=== PATIENT | female | born 1940 | race Caucasian/White ===

== ENCOUNTER 2018-11-11 04:05 | Inpatient (IN) | payer SELFPAY ==
[2018-11-11] VITALS (9 sets, daily range): BP systolic 103–152; BP diastolic 49–91
[~2018-11-11] VITALS: Ht 149.9 cm; Wt 48.5 kg
--- NOTE | 2018-11-11 04:05 | NUR ---
PT MIGUEL ALS. TAKEN TO BED 5
--- NOTE | 2018-11-11 04:10 | NUR ---
78 Y/O F BIBA S/P PT FOUND WITH ALOC AT HOME. PT LAST SEEN NORMAL AT HOME AT 2200 ON 11/10/18. BLOOD GLUCOSE CHECKED AT HOME, BS 34. GRECIA GAVE D10 IV ON SCENE. BS AFTER ADMINISTRATION 201. AAOX4. GCS 15. SPEECH CLEAR. PERRL PRESENT. +CMS. BILATERAL LUNGS CLEAR. RESPIRATIONS EVEN AND UNLABORED. O2 SATURATION AT 99% ON ROOM AIR. BED IN LOWEST POSTION. BEDRAILS X2 UP. ERMD NOTIFIED. WILL CONTINUE TO MONITOR. -BS AT BEDSIDE 148. -18 G IV TO R FOREARM INSERTED BY GRECIA IV PATENT.
[2018-11-11] MEDS ORDERED: NACL 0.9% 1,000 ML IV ONE (04:15)
[2018-11-11 04:31] LABS: APPEARANCE,URINE CLEAR (CLEAR); BILIRUBIN,URINE NEGATIVE (NEGATIVE); BLOOD, URINE TRACE-I (NEGATIVE); COLOR,URINE YELLOW (YELLOW); LEUKOCYTE ESTERASE ,URINE NEGATIVE (NEGATIVE); NITRITE, URINE NEGATIVE (NEGATIVE); PH,URINE 5.5 (5.0-9.0); UGLUCOSE NEGATIVE (NEGATIVE)
[2018-11-11 04:31] LABS: BASOPHILS % (AUTO) 0.1 % (0.0-2.0); HEMATOCRIT 22.9 % (36-48); HEMOGLOBIN 7.4 g/dL (12.0-16.0); LYMPHOCYTES # (AUTO) 0.4 K/uL (2.5-16.5); MEAN CORPUSCULAR HEMOGLOBIN 27 pg (27-31); MEAN CORPUSCULAR HGB CONC 32 g/dL (33-37); MONOCYTES # (AUTO) 0.3 K/uL (0.8-1.0); MONOCYTES % (AUTO) 3.1 % (1.7-9.3); NEUTROPHILS % (AUTO) 92.9 % (42.2-75.2); PLATELET COUNT (AUTO) 234 K/uL (140-450); RED BLOOD CELL COUNT(AUTO) 2.69 MIL/uL (4.20-5.40); RED CELL DISTRIBUTION WIDTH 17.6 % (11.6-13.7); WHITE BLOOD COUNT (AUTO) 9.7 K/uL (4.8-10.8)
[2018-11-11 04:47] LABS: LYMPHOCYTES % (AUTO) 3.9 % (20.5-51.1)
[2018-11-11 04:53] LABS: ASPARTATE AMINOTRANSFERASE 25 U/L (15-37); CARBON DIOXIDE 13.9 mmol/L (21-32); CHLORIDE 108 mmol/L (98-107); CREATININE 2.6 mg/dL (0.6-1.3); GLUCOSE 115 mg/dL (74-106); POTASSIUM 4.9 mmol/L (3.5-5.1); SODIUM SERUM 138 mmol/L (136-145); TOTAL BILIRUBIN 0.1 mg/dL (0.0-1.0)
[2018-11-11 04:57] LABS: RBC,URINE 0-5 /HPF (0-5); WBC,URINE 0-5 /HPF (0-5)
[2018-11-11 05:01] LABS: UREA NITROGEN, BLOOD 89 mg/dL (7-18)
--- NOTE | 2018-11-11 05:45 | NUR ---
PT AWAKE AND ALERT. FAMILY AT BEDSIDE. PER PT NIECE, PT IS VISITNG AND HAS BEEN TAKING SEVERAL MEDICATIONS IN WHICH PT LINETTE IS UNSURE WHAT THEY ARE. ACCORDING TO FAMILY EVER SINCE SHE HAS BEEN TAKING THE MEDICATION "SHE HAS BEEN ACTING WEIRD. I THINK SHE MIGHT HAVE BEEN MIXING HER MEDICATIONS." VSS AT THIS TIME. WILL CONTINUE TO MONITOR.
[2018-11-11] MEDS ORDERED: HYDROcodone/APAP 5/325 MG 1 TAB TAB PO PRN (05:55)
[2018-11-11] MEDS ORDERED: ACETAMINOPHEN 325 MG TAB PO PRN (05:55)
[2018-11-11] MEDS ORDERED: MORPHINE SULFATE 2 MG/ML SYR IVP PRN (05:55)
[2018-11-11] MEDS ORDERED: DEXT 5% / NACL 0.9% 500 ML IV ONE (05:55)
[2018-11-11] MEDS ORDERED: ONDANSETRON 4 MG/2 ML VIAL IM/IVP PRN (05:55)
[2018-11-11] MEDS ORDERED: DOCUSATE SODIUM 100 MG GELCAP PO PRN (05:55)
[2018-11-11] MEDS ORDERED: ENAL-197 PO ×2 (05:59→07:01)
[2018-11-11 06:11] LABS: PROTHROMBIN TIME 9.6 secs (10.8-13.4)
[2018-11-11] MEDS ORDERED: FURO-570 PO (06:18)
[2018-11-11 06:21] LABS: CHOL/HDL RATIO 3.2 (1-4.5); PHOSPHORUS 4.2 mg/dL (2.5-4.9); THYROID STIMULATING HORMONE 0.91 uIU/mL (0.34-3.74)
--- NOTE | 2018-11-11 06:22 | NUR ---
Dr. Romero examining patient.
[2018-11-11] MEDS ORDERED: methylPREDNISolone SS 125 MG/2 ML VIAL IVP ONE (06:25)
[2018-11-11] MEDS ORDERED: EPINEPHrine PFS 0.1 MG/ML SYR IVP ONE (06:25)
[2018-11-11] MEDS ORDERED: diphenhydrAMINE 50 MG/ML VIAL IVP ONE (06:25)
--- NOTE | 2018-11-11 06:25 | NUR ---
PT TONGUE REDDENED AND EDEMATOUS. 6L VIA NON-REBREATHER IN PLACE. O2 SATURATION 100%.
[2018-11-11] MEDS ORDERED: NACL 0.9% 1,000 ML IV SCH (06:30)
[2018-11-11] MEDS ORDERED: ALBUTEROL SULFATE/IPRATROPIU 3 ML SOL IH PRN (06:30)
--- NOTE | 2018-11-11 06:32 | NUR ---
BS 11 BUT PT AWAKE AND ALERT. D50 ORDERED AND GIVEN.
[2018-11-11] MEDS: BLOOD GLUCOSE MONITORING 1 DEV DEV FS SCH ×17 (06:35→23:05)
[2018-11-11] MEDS ORDERED: POTASSIUM CHL 20 MEQ/D5-1/2NS 1,000 ML IV SCH (06:35)
--- NOTE | 2018-11-11 06:35 | NUR ---
ACCU CHECK 237 AT THIS TIME, ERMD AWARE.
--- NOTE | 2018-11-11 06:36 | NUR ---
D5/NS 0.45% IV BOLUS VERBAL ORDER GIVEN AND STARTED.
[2018-11-11] MEDS ORDERED: EPINEPHrine 1:1000 - 1 MG/ML AMP ONE (06:39)
[2018-11-11] MEDS ORDERED: diphenhydrAMINE 50 MG/ML VIAL ONE (06:41)
[2018-11-11] MEDS ORDERED: methylPREDNISolone SS 125 MG/2 ML VIAL ONE (06:41)
[2018-11-11] MEDS ORDERED: DEXTROSE 50% 50 ML SYR IVP ONE (06:42)
[2018-11-11] MEDS: ALBUTEROL SULFATE/IPRATROPIU 3 ML SOL IH SCH ×3 (07:00→19:13)
[2018-11-11] MEDS ORDERED: DEXTROSE 50% 50 ML SYR IVP PRN (07:05)
--- NOTE | 2018-11-11 07:28 | NUR ---
Patient will be admitted to care of Dr. Hale. Admited to ICU. Will go to room 2. Belongings list completed. VSS at time of transport. Report to HÉCTOR Lehman. Transfer of care at this time.
--- NOTE | 2018-11-11 07:30 | NUR ---
RECEIVED BEDSIDE REPORT FROM TRANSFORMER COIL WINDER, LAVERN. PT IS AAOX4, ABLE TO FOLLOW COMMANDS, FRENCH SPEAKER. CC: ALOC. PT HAD LOW BLOOD SUGAR IN THE 34 WHEN EMT ARRIVED. ALSO, HAD HYPOGLYCEMIC EPISODE IN ER. D50 WAS GIVEN. BG 223 AT THIS TIME. PERRLA. HOWEVER, PT CLAIMS RIGHT EYE BLINDNESS. USES GLASSES AND CANE AT HOME. NO DENTURES. VITALS STABLE, ON ROOM AIR. SR ON PSYCHOLOGIST EDUCATIONAL. BILATERAL LUNG SOUNDS CLEAR. BOWEL SOUNDS ACTIVE X4, NPO EX MEDS FOR NOW. DENIES PAIN AND NAUSEA AT THIS TIME. PT IS CONTINENT. RIGHT AC 18G AND LEFT AC 20G, ASYMPTOMATIC, PATENT AND INTACT. SKIN INTACT, HOWEVER, BRUISE ON LEFT CHEST. DENIES PAIN. PT SAID SHE BRUISE EASILY. SAFETY PRECAUTIONS IN PLACE, CALL LIGHT WITHIN REACH, WILL CONTINUE TO MONITOR.
[2018-11-11] MEDS ORDERED: HYDROmorphone 1 MG/ML AMP IVP SCH (07:40)
--- NOTE | 2018-11-11 07:50 | NUR ---
DR COE HAS SEEN THE PT.
--- NOTE | 2018-11-11 08:10 | NUR ---
PATIENT HAS BEEN SCREENED AND CATEGORIZED MODERATE NUTRITION RISK. PATIENT WILL BE SEEN WITHIN 3-5 DAYS OF ADMISSION. 11/13/18BERNAR[address]
[2018-11-11] MEDS ORDERED: SODIUM BICARBONATE 8.4% 50 MEQ/50 ML VIAL INJ ONE (08:35)
[2018-11-11] MEDS ORDERED: SODIUM BICARBONATE 8.4% PFS 50 MEQ/50 ML SYR IVP SCH ×2 (09:00→14:35)
[2018-11-11] MEDS ORDERED: LOSARTAN 25 MG TAB PO SCH (09:27)
[2018-11-11] MEDS ORDERED: FUROSEMIDE 40 MG TAB PO SCH (09:27)
[2018-11-11 09:44] LABS: CHOL/HDL RATIO 3.1 (1-4.5); THYROID STIMULATING HORMONE 0.72 uIU/mL (0.34-3.74)
--- NOTE | 2018-11-11 09:57 | NUR ---
PT BG 47, RECHECKED ON THE OTHER HAND 46. ADMINISTERED D50. REPORTED TO DR COE. DR COE ORDERED D5 1/2NS AT 80ML/HR FOR BS <100. Addendum: 11/11/18 at 1515 by Dominik Salvador RN ASKED IF DR COE WANTS HOLD THE NS WHILE D5 1/2NS IS INFUSING, DR COE SAID YES.
--- NOTE | 2018-11-11 10:05 | NUR ---
STARTED PT ON D5 1/2NS AT 80ML/HR ON RIGHT AC, AND DC'D NS.
[2018-11-11] MEDS: DEXT 5% / NACL 0.45% 1,000 ML IV SCH (10:21)
[2018-11-11] MEDS ORDERED: methylPREDNISolone SS 40 MG/ML VIAL IVP SCH (10:23)
[2018-11-11] MEDS ORDERED: LORATADINE 10 MG TAB PO SCH (10:24)
[2018-11-11 12:02] LABS: BASOPHILS % (AUTO) 0.1 % (0.0-2.0); HEMATOCRIT 24.4 % (36-48); HEMOGLOBIN 7.8 g/dL (12.0-16.0); LYMPHOCYTES # (AUTO) 0.4 K/uL (2.5-16.5); MEAN CORPUSCULAR HEMOGLOBIN 27 pg (27-31); MEAN CORPUSCULAR HGB CONC 32 g/dL (33-37); MEAN CORPUSCULAR VOLUME 84.7 fL (80-94); MONOCYTES # (AUTO) 0.1 K/uL (0.8-1.0); MONOCYTES % (AUTO) 1.1 % (1.7-9.3); NEUTROPHILS # (AUTO) 12.1 K/uL (1.8-7.7); NEUTROPHILS % (AUTO) 95.8 % (42.2-75.2); PLATELET COUNT (AUTO) 228 K/uL (140-450); RED BLOOD CELL COUNT(AUTO) 2.88 MIL/uL (4.20-5.40); RED CELL DISTRIBUTION WIDTH 17.7 % (11.6-13.7); WHITE BLOOD COUNT (AUTO) 12.6 K/uL (4.8-10.8)
[2018-11-11 12:44] LABS: ALBUMIN 2.9 g/dL (3.4-5.0); ANION GAP 17.7 (8-16); ASPARTATE AMINOTRANSFERASE 37 U/L (15-37); CARBON DIOXIDE 16.8 mmol/L (21-32); CHLORIDE 108 mmol/L (98-107); CREATININE 2.3 mg/dL (0.6-1.3); GLUCOSE 110 mg/dL (74-106); POTASSIUM 4.5 mmol/L (3.5-5.1); SODIUM SERUM 138 mmol/L (136-145); TOTAL BILIRUBIN 0.2 mg/dL (0.0-1.0)
[2018-11-11 12:45] LABS: UREA NITROGEN, BLOOD 77 mg/dL (7-18)
--- NOTE | 2018-11-11 14:50 | NUR ---
PT C/O PAIN ON THE LEFT REAR SHOULDER. PT SAID IT'S CHRONIC SHE HAD BEFORE. PT IS WATCHING TV, NO FACIAL GRIMACING AND NO GUARDING. MADE DR COE AWARE. DR COE SAID TO GIVE TYLENOL.
--- NOTE | 2018-11-11 15:05 | NUR ---
FAMILY MARIA ESTHER HERNANDEZ (NIECE) AND HER DAUGHTER IS HERE TO VISIT PT.
--- NOTE | 2018-11-11 18:00 | NUR ---
PT FINISHED DINNER, SITTING UP IN BED, TALKING TO FAMILY. NIECE MARIA ESTHER AT BEDSIDE.
--- NOTE | 2018-11-11 18:04 | NUR ---
BG 222, CALLED DR COE, ORDER TO LOWER D5 1/2NS TO 20ML/HR. ORDER CARRIED OUT
--- NOTE | 2018-11-11 19:20 | NUR ---
REPORT GIVEN TO CORPORATE COMMUNICATIONS ASSOCIATE RNSALMA AND LIYAH.
--- NOTE | 2018-11-11 19:20 | NUR ---
RECEIVED BEDSIDE REPORT FROM DAY SHIFT RN JENNIE, PATIENT IN BED, MEXICAN SPEAKING, ABLE TO MAKE NEEDS KNOWN AND FOLLOW DIRECTIONS. R/T AT BEDSIDE. FAMILY AT BEDSIDE QUESTIONS ANSWERED. V/S STABLE, IV IN RIGHT AC 20 G NOT PATENT. IV IN LEFT AC 18 G PATIENT INFUSING D5/1/2 NS AR 20 ML/HR. CALL LIGHT WITHIN REACH.
--- NOTE | 2018-11-11 20:00 | NUR ---
BLOOD GLUCOSE 220 WILL CONTINUE TO MONITOR
--- NOTE | 2018-11-11 21:00 | NUR ---
BG 207 WILL CONTINUE TO MONITOR
--- NOTE | 2018-11-11 21:33 | NUR ---
PT WAS C/O SOMETHING BUT ONLY SPEAKS ITALIAN. CALLED CHAIR CAR DRIVER AND THE CHAIR CAR DRIVER #[id number]. PT WAS ONLY WANTING THE SCD TO BE FIXED.
--- NOTE | 2018-11-11 21:59 | NUR ---
BG 180 WILL CONTINUE TO MONITOR
--- NOTE | 2018-11-11 22:06 | NUR ---
DC IV IN LEFT AC 20 G CATH INTACT
[2018-11-11 22:23] LABS: BARBITURATE, URINE NEG. ng/ml (NEG <=200); BENZODIAZEPINE, URINE NEG. ng/mL (NEG <=200); CANNABINOID, URINE NEG. ng/mL (NEG <=50); COCAINE, URINE NEG. ng/mL (NEG <=300); OPIATE, URINE NEG. ng/mL (NEG <=2000); PHENCYCLIDINE SCREEN,URINE NEG. ng/mL (NEG <=25)
[2018-11-12] VITALS (10 sets, daily range): BP systolic 100–149; BP diastolic 42–69
--- NOTE | 2018-11-12 | NUR ---
BG 130. PATIENT URINATED 400 CC CLEAR YELLOW URINE. MARY KAY CARE PROVIDED, REPOSITIONED FOR COMFORT. EXPLAINED TO PATIENT OF NEED FOR STOOL SAMPLE FOR OCCULT BLOOD. PATIENT VERBALIZED UNDERSTANDING.
--- NOTE | 2018-11-12 01:00 | NUR ---
BLOOD GLUCOSE 120
[2018-11-12] MEDS: BLOOD GLUCOSE MONITORING 1 DEV DEV FS SCH ×17 (01:02→23:19)
--- NOTE | 2018-11-12 02:00 | NUR ---
BLOOD GLUCOSE 114. REPOSITIONED PATIENT FOR COMFORT.
--- NOTE | 2018-11-12 03:00 | NUR ---
BLOOD GLUCOSE 102 OFFERED ORANGE JUICE
--- NOTE | 2018-11-12 04:00 | NUR ---
BLOOD GLUCOSE 155
--- NOTE | 2018-11-12 05:00 | NUR ---
BLOOD GLUCOSE 104. WILL OFFER ORANGE JUICE
[2018-11-12 06:12] LABS: T4 (THYROXINE) 7.6 ug/dL (4.5-12.0)
[2018-11-12 06:14] LABS: BASOPHILS % (AUTO) 0.1 % (0.0-2.0); LYMPHOCYTES # (AUTO) 0.9 K/uL (2.5-16.5); LYMPHOCYTES % (AUTO) 11.4 % (20.5-51.1); MEAN CORPUSCULAR HEMOGLOBIN 28 pg (27-31); MEAN CORPUSCULAR HGB CONC 33 g/dL (33-37); MEAN CORPUSCULAR VOLUME 83.3 fL (80-94); MONOCYTES # (AUTO) 0.5 K/uL (0.8-1.0); MONOCYTES % (AUTO) 6.8 % (1.7-9.3); NEUTROPHILS # (AUTO) 6.5 K/uL (1.8-7.7); NEUTROPHILS % (AUTO) 81.7 % (42.2-75.2); PLATELET COUNT (AUTO) 200 K/uL (140-450); RED BLOOD CELL COUNT(AUTO) 2.25 MIL/uL (4.20-5.40); RED CELL DISTRIBUTION WIDTH 17.7 % (11.6-13.7); WHITE BLOOD COUNT (AUTO) 7.9 K/uL (4.8-10.8)
[2018-11-12 06:25] LABS: ANION GAP 17.9 (8-16); CARBON DIOXIDE 18.5 mmol/L (21-32); CHLORIDE 109 mmol/L (98-107); CREATININE 2.5 mg/dL (0.6-1.3); GLUCOSE 124 mg/dL (74-106); POTASSIUM 4.4 mmol/L (3.5-5.1); SODIUM SERUM 141 mmol/L (136-145)
[2018-11-12 06:28] LABS: UREA NITROGEN, BLOOD 74 mg/dL (7-18)
[2018-11-12 06:31] LABS: MAGNESIUM 1.7 mg/dL (1.8-2.4); PHOSPHORUS 4.3 mg/dL (2.5-4.9)
[2018-11-12 06:58] LABS: HEMATOCRIT 18.7 % (36-48)
[2018-11-12 06:59] LABS: HEMOGLOBIN 6.2 g/dL (12.0-16.0)
--- NOTE | 2018-11-12 07:00 | NUR ---
BG 94. ENDORSED PATIENT TO DAY SHIFT NURSE SEA, PATIENT SLEEPING IN BED.
[2018-11-12] MEDS: ALBUTEROL SULFATE/IPRATROPIU 3 ML SOL IH SCH ×2 (07:15→13:00)
--- NOTE | 2018-11-12 07:30 | NUR ---
RECEIVED BEDSIDE REPORT FROM PM NURSE, PATIENT IN BED, TURKISH SPEAKING, ABLE TO MAKE NEEDS KNOWN AND FOLLOW COMMANDS. BEDSIDE MONITOR SHOWS SR. RA, NO SOB. IV TO RIGHT AC # 20 RUNNING D5 1/2 NS AT 20 ML/HR. SITE INTACT AND PATENT. PT IS GNOSTICIST . INTRODUCED MYSELF, ALL SAFETY PRECAUTION MEASURE IN PLACE. WILL CONTINUE TO MONITOR PT.
[2018-11-12] MEDS: MAG SULF 2000 MG/WATER PREMIX 50 ML IV SCH (07:35)
[2018-11-12] MEDS ORDERED: PROBIOTIC SCREEN 1 EA MISC MC PRN (07:55)
--- NOTE | 2018-11-12 08:30 | NUR ---
dr. reis with his group making rounds. pt refused blood transfusion due to she is Bahai
[2018-11-12] MEDS ORDERED: FUROSEMIDE 40 MG TAB PO SCH (09:00)
[2018-11-12] MEDS ORDERED: LOSARTAN 25 MG TAB PO SCH (09:00)
[2018-11-12] MEDS ORDERED: LORATADINE 10 MG TAB PO SCH (09:00)
--- NOTE | 2018-11-12 09:00 | NUR ---
BS 183. CALLED RESIDENT [id number]. PER ORDER, JUST KEEP WATCHING.
[2018-11-12] MEDS: DEXT 5% / NACL 0.45% 1,000 ML IV SCH (09:43)
--- NOTE | 2018-11-12 10:20 | NUR ---
PHYSICAL THERAPY AT BEDSIDE.
--- NOTE | 2018-11-12 12:05 | NUR ---
PT SITTING AT BEDSIDE TO EAT LUNCH.
[2018-11-12 12:20] LABS: BASOPHILS % (AUTO) 0.2 % (0.0-2.0); EOSINOPHILS % (AUTO) 0.3 % (0.0-4.0); HEMATOCRIT 20.1 % (36-48); LYMPHOCYTES # (AUTO) 1.6 K/uL (2.5-16.5); MEAN CORPUSCULAR HEMOGLOBIN 27 pg (27-31); MEAN CORPUSCULAR HGB CONC 33 g/dL (33-37); MEAN CORPUSCULAR VOLUME 82.7 fL (80-94); MONOCYTES # (AUTO) 0.7 K/uL (0.8-1.0); MONOCYTES % (AUTO) 7.1 % (1.7-9.3); NEUTROPHILS % (AUTO) 75.4 % (42.2-75.2); PLATELET COUNT (AUTO) 219 K/uL (140-450); RED BLOOD CELL COUNT(AUTO) 2.43 MIL/uL (4.20-5.40); RED CELL DISTRIBUTION WIDTH 18.3 % (11.6-13.7); WHITE BLOOD COUNT (AUTO) 9.3 K/uL (4.8-10.8)
--- NOTE | 2018-11-12 12:30 | NUR ---
DR. HUDDLESTON CALLED REGARDING CONSULTED , WILL COME TO SEE THE PATIENT.
[2018-11-12 12:34] LABS: HEMOGLOBIN 6.7 g/dL (12.0-16.0)
--- NOTE | 2018-11-12 12:50 | NUR ---
LAB CALLED BLOOD CULTURE FOUND GRAM NEGATIVE KADI. DR. COE NOTIFIED.
[2018-11-12] MEDS: methylPREDNISolone SS 40 MG/ML VIAL IVP SCH ×2 (13:19→21:13)
--- NOTE | 2018-11-12 14:00 | NUR ---
SPOKE WITH DR. COE TO DISCONTINUE DUONEB TX Q6 WA AND CHANGE IT TO DUONEB Q6 PRN[address] COE HAS AGREED. PT IS DOING WELL WITHOUT TX. CHECKED PATIENT AT THIS TIME. PT'S SATS ARE 98% ON RA. HR 79. RR 18. NO RESP DISTRESS AT THIS TIME.
[2018-11-12 15:17] LABS: FOLIC ACID 18.3 ng/mL (>3.0)
--- NOTE | 2018-11-12 15:57 | NUR ---
PT TALKING WITH HER FAMILY AT BEDSIDE, NO ANY DISCOMFORT OR SOB NOTED.
[2018-11-12] MEDS ORDERED: SENNA 8.6 MG TAB PO SCH (17:00)
--- NOTE | 2018-11-12 17:44 | NUR ---
RECEIVED PT FROM DR. COE. DR. COE MADE AWARE PT BLOOD CULTURE POSITIVE. PER DR. COE, D/C ZOSYN ABX, WILL CARRY OUT.
--- NOTE | 2018-11-12 18:45 | NUR ---
REPORT GIVEN TO TELE NURSE DHIRAJ, PT VITALS STABLE AT THIS MOMENT. FAMILY WITH PT.
--- NOTE | 2018-11-12 18:46 | NUR ---
RECEIVED BED SIDE REPORT FROM RN BIRTHINGHÉCTOR OSEI. PT CAME VIA WHEELCHAIR WITH AUNT. RIGHT AC 22G RUNNING D5 1/2 NS. SKIN INTACT, BRUISES ON BILAT UPPER ARMS. ON CONTACT PRECAUTIONS FOR POSITIVE GRAM COCCI CLUSTERS. EDUCATED PT AND AUNT ABOUT PPE. BOTH VERBALIZED UNDERSTANDING. PT COMPLAINS OF NO PAIN. VS STABLE. BP 61/71 Addendum: 11/12/18 at 1917 by Jovany Frias RN BP 161/71, NO BP MEDS ORDERED, TRIED TO CALL RESIDENTS FOR ADDING BP MED. NO ANSWER. ENDORSED TO SCAFFOLD WORKER HÉCTOR AUGUST
--- NOTE | 2018-11-12 19:17 | NUR ---
GAVE BED SIDE REPORT FROM REPLENISHMENT MERCHANDISING ASSOCIATE RN AUGUST. PT IN STABLE CONDITION
--- NOTE | 2018-11-12 19:18 | NUR ---
RECEIVED REPORT FROM AM NURSE. PT IN BED, AWAKE, ALERT AND ORIENTED. PT ABLE TO VERBALIZE NEEDS. FAMILY AT BEDSIDE. PT BREATHING UNLABORED ON ROOM AIR. NO C/O DISCOMFORT. RIGHT AC 22G INTACT AND INFUSING WELL. SAFETY MEASURES IN PLACE, BED IN LOW POSITION, BED ALARM ON. CALL LIGHT WITHIN REACH.
[2018-11-12] MEDS ORDERED: PIPERACILLIN/TAZOBACTAM 3.375 GM in DEXTROSE 5% 100 ML IV SCH (21:00)
[2018-11-12] MEDS ORDERED: LACTULOSE 20 GM/30 ML UDC PO SCH (21:00)
--- NOTE | 2018-11-12 21:00 | NUR ---
BLOOD GLUCOSE TAKEN. 108 AT THIS TIME. FOLLOWED UP WITH RESIDENT SHINE TO CONTINUE GLUCOSE CHECKS Q2H. PER DR SHINE CONTINUE BLOOD GLUCOSE MONITORING Q2H.
--- NOTE | 2018-11-12 23:10 | NUR ---
BLOOD GLUCOSE 124 AT THIS TIME.
[2018-11-13] VITALS (7 sets, daily range): BP systolic 127–152; BP diastolic 49–86
--- NOTE | 2018-11-13 01:00 | NUR ---
SKILLED NURSING FACILITIES PROFESSIONAL ASSISTED PT TO BATHROOM. PT UNABLE TO HOLD BM, ACCIDENTAL STOOL ON FLOOR, CLOTHING AND BODY. PT WAS CLEANED AND CHANGED. PT PROVIDED NEW [place]. HOUSEKEEPING CALLED FOR CLEAN UP. OB STOOL SAMPLE OBTAINED.
--- NOTE | 2018-11-13 01:34 | NUR ---
BLOOD GLUCOSE 152. NOTIFIED RESIDENT . PER DR. SHINE NO INSULIN COVERAGE NEEDED AT THIS TIME. CONTINUE Q2H ACCU-CHECKS
[2018-11-13] MEDS: BLOOD GLUCOSE MONITORING 1 DEV DEV FS SCH ×8 (01:37→20:28)
--- NOTE | 2018-11-13 03:00 | NUR ---
BLOOD GLUCOSE 142
--- NOTE | 2018-11-13 05:00 | NUR ---
BLOOD GLUCOSE 136. MEDICATIONS GIVEN PT TOLERATED WELL.
[2018-11-13] MEDS: methylPREDNISolone SS 40 MG/ML VIAL IVP SCH ×3 (05:09→20:29)
[2018-11-13 05:54] LABS: ANION GAP 15.6 (8-16); CARBON DIOXIDE 19.7 mmol/L (21-32); CHLORIDE 111 mmol/L (98-107); CREATININE 2.3 mg/dL (0.6-1.3); GLUCOSE 151 mg/dL (74-106); POTASSIUM 5.3 mmol/L (3.5-5.1); SODIUM SERUM 141 mmol/L (136-145)
[2018-11-13 05:56] LABS: MAGNESIUM 2.6 mg/dL (1.8-2.4); PHOSPHORUS 3.6 mg/dL (2.5-4.9)
--- NOTE | 2018-11-13 05:59 | NUR ---
LAB CALLED TO REPORT BUN 64, TRENDING DOWN.
[2018-11-13 06:00] LABS: UREA NITROGEN, BLOOD 64 mg/dL (7-18)
--- NOTE | 2018-11-13 06:08 | NUR ---
NOTIFIED RESIDENT RL OF PT BUN OF 64, POTASSIUM 5.[address] SHINE HOLD 0700 MAG RIDER.
[2018-11-13] MEDS: MAG SULF 2000 MG/WATER PREMIX 50 ML IV SCH (06:12)
[2018-11-13 06:24] LABS: BASOPHILS % (AUTO) 0.1 % (0.0-2.0); LYMPHOCYTES # (AUTO) 0.6 K/uL (2.5-16.5); LYMPHOCYTES % (AUTO) 7.9 % (20.5-51.1); MEAN CORPUSCULAR HEMOGLOBIN 27 pg (27-31); MEAN CORPUSCULAR HGB CONC 33 g/dL (33-37); MEAN CORPUSCULAR VOLUME 83.2 fL (80-94); MONOCYTES # (AUTO) 0.1 K/uL (0.8-1.0); NEUTROPHILS # (AUTO) 6.4 K/uL (1.8-7.7); PLATELET COUNT (AUTO) 199 K/uL (140-450); RED BLOOD CELL COUNT(AUTO) 2.38 MIL/uL (4.20-5.40); RED CELL DISTRIBUTION WIDTH 17.8 % (11.6-13.7)
[2018-11-13] MEDS ORDERED: SODIUM POLYSTYRENE 15 GM/60 ML UDBTL PO SCH (07:00)
[2018-11-13] MEDS ORDERED: SODIUM POLYSTYRENE 15 GM/60 ML UDBTL PR SCH (07:00)
--- NOTE | 2018-11-13 07:05 | NUR ---
ENDORSED PT TO AM NURSE. PT IN STABLE CONDITION
[2018-11-13 07:11] LABS: HEMATOCRIT 19.8 % (36-48); HEMOGLOBIN 6.5 g/dL (12.0-16.0)
--- NOTE | 2018-11-13 07:30 | NUR ---
PATIENT WAS AWAKE, ALERT. RESPIRATION EVEN, UNLABOR ON ROOM AIR. SKIN DRY AND WARM. IV PATENT AND INTACT. DENIED PAIN, DIZZINESS, SOB AT THIS TIME. PLAN OF CARE WAS DISCUSSED WITH PATIENT. BED AT LOW POSITION, SIDE RAILS UP. CALL LIGHT WITHIN REACH.
[2018-11-13] MEDS ORDERED: BLOOD GLUCOSE MONITORING 1 DEV DEV FS SCH (08:00)
[2018-11-13] MEDS ORDERED: LACTOBACILLUS RHAMNOSUS GG 1 EACH CAP PO SCH (09:00)
--- NOTE | 2018-11-13 10:03 | NUR ---
PATIENT WAS RESTING COMFORTABLY IN BED. NO DISTRESS NOTED AT THIS TIME
--- NOTE | 2018-11-13 11:52 | NUR ---
PATIENT WAS RESTING COMFORTABLY. RESPIRATION EVEN, UNLABOR ON ROOM AIR. DENIED PAIN, DIZZINESS AT THIS TIME. NO DISTRESS NOTED.
--- NOTE | 2018-11-13 14:00 | NUR ---
PATIENT WAS SLEEPING COMFORTABLY. RESPIRATION EVEN, UNLABOR ON ROOM AIR. NO DISTRESS NOTED AT THIS TIME
--- NOTE | 2018-11-13 15:20 | NUR ---
11/13/18 RD FOLLOW UP COMPLETED PLEASE REFER TO NUTRITION ASSESSMENT UNDER CARE ACTIVITY FOR ESTIMATED NUTRITIONAL NEEDS. 1. CONTINUE SOFT DIET TOLERATED 2. RECOMMEND OFFERING GLUCERNA BID 3. RECOMMEND OFFERING CARDIAC,CCHO 45 GM, WHEN PT�S INTAKE IS ABOVE 75% 4. RD TO FOLLOW-UP 2-3 DAYS, HIGH RISK BERNARDA HADLEY, RD
--- NOTE | 2018-11-13 16:00 | NUR ---
PATIENT WAS SLEEPING COMFORTABLY. RESPIRATION EVEN, UNLABOR ON ROOM AIR. DENIED PAIN AT THIS TIME. FAMILY AT BEDSIDE. NO DISTRESS NOTED
--- NOTE | 2018-11-13 18:00 | NUR ---
PATIENT WAS RESTING COMFORTABLY. IV PATENT AND INTACT. NO DISTRESS NOTED AT THIS TIME. FAMILY AT BEDSIDE
--- NOTE | 2018-11-13 19:24 | NUR ---
ENDORSEMENT GIVEN TO IMMIGRATION OFFICER NURSE. PATIENT IS STABLE AT THIS TIME
--- NOTE | 2018-11-13 19:25 | NUR ---
RECEIVED PT IN STABLE CONDITION FROM AM NURSE FOR CONTINUITY OF CARE. AWAKE,ALERT AND ORIENTED X4. ON TEL MONITOR -SR. FAMILY AT BEDSIDE. NO C/O ANY DISCOMFORT NOR PAIN NOTED. HS HL ON THE RT AC G#20. CLEAR AND PATENT. PLAN OF CARE DISCUSSED AND VERBALIZED UNDERSTANDING. BED ON LOW POSITION, CALL LIGHT WITHIN REACH. WILL CONTINUE TO MONITOR.
--- NOTE | 2018-11-13 20:28 | NUR ---
BLOOD SUGAR WAS CHECKED RESULT 139. NO INSULIN NEEDED.
--- NOTE | 2018-11-13 23:00 | NUR ---
MADE ROUNDS. PT SLEEPING. NO S/S OF ANY DISTRESS NOR PAIN NOTED.
--- NOTE | 2018-11-14 02:00 | NUR ---
PT IS ASLEEP. NO S/S OF ANY DISCOMFORT NOTED. WILL CONTINUE TO MONITOR.
[2018-11-14 04:17] VITALS: BP 153/57
[2018-11-14] MEDS: methylPREDNISolone SS 40 MG/ML VIAL IVP SCH (04:21)
[2018-11-14] MEDS: BLOOD GLUCOSE MONITORING 1 DEV DEV FS SCH ×3 (04:25→08:44)
--- NOTE | 2018-11-14 04:25 | NUR ---
BLOOD SUGAR WAS CHECKED RESULT 119. NO INSULIN NEEDED.
[2018-11-14 06:08] LABS: ANION GAP 13.7 (8-16); CARBON DIOXIDE 22.2 mmol/L (21-32); CHLORIDE 113 mmol/L (98-107); CREATININE 2.2 mg/dL (0.6-1.3); GLUCOSE 123 mg/dL (74-106); POTASSIUM 4.9 mmol/L (3.5-5.1); SODIUM SERUM 144 mmol/L (136-145); UREA NITROGEN, BLOOD 54 mg/dL (7-18)
[2018-11-14 06:17] LABS: MAGNESIUM 2.5 mg/dL (1.8-2.4); PHOSPHORUS 3.6 mg/dL (2.5-4.9)
[2018-11-14 06:50] LABS: LYMPHOCYTES # (AUTO) 0.9 K/uL (2.5-16.5); LYMPHOCYTES % (AUTO) 10.7 % (20.5-51.1); MEAN CORPUSCULAR HEMOGLOBIN 27 pg (27-31); MEAN CORPUSCULAR HGB CONC 32 g/dL (33-37); MEAN CORPUSCULAR VOLUME 84.4 fL (80-94); MONOCYTES # (AUTO) 0.3 K/uL (0.8-1.0); MONOCYTES % (AUTO) 3.6 % (1.7-9.3); NEUTROPHILS # (AUTO) 7.6 K/uL (1.8-7.7); NEUTROPHILS % (AUTO) 85.7 % (42.2-75.2); PLATELET COUNT (AUTO) 203 K/uL (140-450); RED BLOOD CELL COUNT(AUTO) 2.31 MIL/uL (4.20-5.40); RED CELL DISTRIBUTION WIDTH 18.3 % (11.6-13.7); WHITE BLOOD COUNT (AUTO) 8.8 K/uL (4.8-10.8)
[2018-11-14 07:10] LABS: HEMOGLOBIN 6.3 g/dL (12.0-16.0)
[2018-11-14 07:13] LABS: HEMATOCRIT 19.5 % (36-48)
--- NOTE | 2018-11-14 07:14 | NUR ---
RECEIVED BEDSIDE REPORT FROM HÉCTOR WEEKS. PT STABLE, SLEEPING, BUT EASILY AROUSABLE. NO SIGNS OF DISTRESS NOTED. DENIES PAIN OR SOB. NO REDNESS, SWELLING, OR INFLAMMATION NOTED ON IV SITE. CALL OLVERA WITHIN REACH. BED IN LOWEST POSITION, BED ALARM ON. SAFETY MEASURES IN PLACE. PLAN OF CARE REVIEWED.
--- NOTE | 2018-11-14 07:15 | NUR ---
ENDORSED PT IN STABLE CONDITION TO AM NURSE.
[2018-11-14 08:00] VITALS: BP 127/55
--- NOTE | 2018-11-14 09:20 | NUR ---
PT STABLE, NO SIGNS OF DISTRESS NOTED.
--- NOTE | 2018-11-14 11:43 | NUR ---
PT SEEN BY DR COE AND GIVEN DISCHARGE INSTRUCTIONS.
[2018-11-14 12:00] VITALS: BP 127/56
--- NOTE | 2018-11-14 13:30 | NUR ---
PT STABLE, SLEEPING, BUT EASILY AROUSABLE. CHEST RISE AND FALL VISIBLY NOTED.
--- NOTE | 2018-11-14 15:38 | NUR ---
LEFT A MESSAGE TO PT'S NEPHEW JET REGARDING PT'S DISCHARGE TODAY.
[2018-11-14 16:00] VITALS: BP 150/58
--- NOTE | 2018-11-14 17:50 | NUR ---
D/C INSTRUCTIONS AND PAPERWORK GIVEN TO PT AND PATIENT'S NIECE MARIA ESTHER. PT AND FAMILY VERBALIZED UNDERSTANDING. QUESTIONS AND CONCERNS WERE ADDRESSED. D/C IV, CATHETER TIP INTACT, BLEEDING CONTROLLED. SKIN INTACT, PT REFUSED PNEUMONIA VACCINE, FLU VACCINE NOT IN SEASON. PT STABLE, AAOX4, COMMUNICATES WITH STAFF AND FAMILY APPROPRIATELY. PT HAS ALL OF BELONGINGS. MARIA ESTHER WILL BE DRIVING PT BACK HOME.
--- NOTE | 2018-11-14 18:15 | NUR ---
ESCORTED PT TO THE LOBBY AND WILL BE DRIVEN BACK HOME BY KASHIF MAYO.
== END 2018-11-14 18:30 | disposition home or self-care (01) | DRG 917 ==
LOC: MED 04:05 → MMU 05:57 → MIC 06:56 → MTU 11-12 18:30
PROVIDERS: ADMIT General Practice; ATTEND General Practice
DX: T38.3X1A Poisoning by insulin and oral hypoglycemic [antidiabetic] drugs, accidental (unintentional), initial encounter (principal); G93.41 Metabolic encephalopathy; N17.0 Acute kidney failure with tubular necrosis; E44.0 Moderate protein-calorie malnutrition; E87.2 Acidosis; T78.3XXA Angioneurotic edema, initial encounter; E16.2 Hypoglycemia, unspecified; M19.90 Unspecified osteoarthritis, unspecified site; T46.4X5A Adverse effect of angiotensin-converting-enzyme inhibitors, initial encounter; E87.8 Other disorders of electrolyte and fluid balance, not elsewhere classified; R31.9 Hematuria, unspecified; D50.0 Iron deficiency anemia secondary to blood loss (chronic); E87.5 Hyperkalemia; E83.41 Hypermagnesemia; K59.00 Constipation, unspecified; N18.9 Chronic kidney disease, unspecified; I12.9 Hypertensive chronic kidney disease with stage 1 through stage 4 chronic kidney disease, or unspecified chronic kidney disease; T38.0X5A Adverse effect of glucocorticoids and synthetic analogues, initial encounter; D72.828 Other elevated white blood cell count; Z90.710 Acquired absence of both cervix and uterus; Z90.49 Acquired absence of other specified parts of digestive tract; Z83.3 Family history of diabetes mellitus; Y92.89 Other specified places as the place of occurrence of the external cause; Z68.21 Body mass index [BMI] 21.0-21.9, adult
CPT/HCPCS: 36415; 36600; 70450; 71045; 76700; 76770; 80048; 80053; 80305; 81001; 82009; 82140; 82150; 82272; 82550; 82607; 82728; 82746; 82803; 82948; 83036; 83540; 83605; 83615; 83690; 83735; 83880; 84100; 84436; 84443; 84479; 84484; 84681; 85025; 85045; 85610; 85730; 86886; 86900; 86901; 87040; 87081; 87086; 93005; 94640; 96361; 96374; 97110; 97116; 97161-GP; 97530; 99291; G0482; J0171; J1200; J2543; J2920; J2930; J3475; J7030; J7042; J7060; J7620; Q0092